=== PATIENT | male | born 2000 | race Caucasian/White ===

== ENCOUNTER 2024-10-08 09:40 | Outpatient (REF) | payer SELFPAY ==
--- OUTSIDE RECORDS SUMMARY | 2024-10-08 10:19 | XMS_ITS | Encounter Summary ---
Author Organization [employer] Address [address] [facility] 7t [place] [address] Care Team Providers Care Neurosurgical Physician Assistant Name Role Phone Unavailable Primary Care Provider Unavailabl e Reason for Visit * Reason Onset Date Comments chart prep 10/07/2024 Encounter Details Date Type Department Care Team (Late st Contact Info) Description 10/07/2024 Telephone [facility] MED[facility]INE [address] [place], [place] [phone] Reta Daly MD [address] [place], [place] [phone] chart prep Social History Tobacco Use Types Packs/Day Years Used Date Smoking Tobacco: Never Assessed Depression Answer Date Recorded Patient Health Questionnaire-9 Score 3 10/08/2024 Patient Health Questionnaire-9 Score 3 10/08/2024 Last PHQ-9: Questionnaire Data Not on file 0 10/08/2024 Housing Stability Answer Date Recorded What is your housing situation today? I have maxwell hunter 09/28/[address] you li ve. Do you have problems with any of the following? None of the above 09/28/2024 Food Insecurity Answer Date Recorded Within the past 12 months, y ou worried that your food would run out before you got money to buy more: Never True 09/28/2024 Within the past 12 months,th e food you bought just didn't last and you didn't have enough money to get more: Never True Transportation Answer Date Recorded In the past 12 months, has l ack of transportation kept you from medical appts, meetings, work or from getting things needed for daily living? No 09/28/2024 Utilities Answer Date Recorded In the past 12 months, has t he electric, gas, oil or water company threatened to shut off services in your home? No 09/28/2024 Depression Answer Date Recorded Patient Health Questionnaire-2 Score 0 10/08/2024 Internet Access Answer Date Recorded Internet Access Q1 Yes 09/28/2024 Internet Access Q2 Not on file 09/28/2024 Sex and Gender Information Value Date Recorded Sex Assigned at Male 07/08/2022 10:26 AM EDT Legal Sex Male 10:26 AM EDT Gender Identity Male 10/05/2024 11:43 AM EST Sexual Orientation Don't know 10/05/2024 12 :16 PM EST documented as of this encounter Miscellaneous Notes * Telephone Encounter - Narcisa Brooks MA - 10/07/2024 9:22 AM EST Chart Prep Labs: not applicable Images: not applicable Vaccines due: yes Referrals: NA Overdue care gaps: Sbirt, SDOH, PHQ-9, Oral Health documented in this encounter Plan of Treatment Not on file documented as of this encounter Visit Diagnoses Not on filedocumented in this encounter
--- OUTSIDE RECORDS SUMMARY | 2024-10-08 10:19 | XMS_ITS | Clinical Summary ---
Author Organization [employer] Address [address] [facility] [address] 7t [place] [address] Care Team Providers Care Foundry Hand Name Role Phone Reta Daly MD Primary Care Provider [phone] Allergies No known active allergies Medications Blood Pressure Monitoring (Blood Pressure Cuff) [facility] 1 each Once per day. 1 each 10/08/2024 Active Encounters Date Type Department Care Team Description 10/08/2024 9:00 AM EST Office Visit [address] [phone] Reta Daly MD Screening examination for STI (Primary Dx); Elevated blood pressure reading in office without diagnosis of hypertension 10/08/2024 Travel 10/07/[address] [address] Reta Daly MD chart prep 09/28/2024 Patient Outreach [address] [address] Reta Daly MD Pre-visit Planning (SDOH screening negative and tobacco screening positive) 09/06/[address] [address] Brendon Morris MD New patient from Last 3 Months Social History Tobacco Use Types Packs/Day Years Used Date Smoking Tobacco: Some Days Cigarettes Smokeless Tobacco: Current Tobacco Cessation:Ready to Q uit: Not Asked; Counseling Given: Not Answered Alcohol Use Standard Drinks/Week Comments Not Currently 0 (1 standard drink = 0.6 oz pur e alcohol) Depression Answer Date Recorded Patient Health Questionnaire-9 [...] Don't know 10/05/2024 12 :16 PM EST Last Filed Vital Signs Vital Sign Reading Time Taken Comments Blood Pressure 138/86 10/08/2024 9:04 AM EST Pulse 84 10/08/2024 9:04 AM EST Temperature 36.4 ??C (97.6 ??F) 10/08/2024 9:04 AM ES T Respiratory Rate 17 10/08/2024 9:04 AM EST Oxygen Saturation - - Inhaled Oxygen Concentration - - Weight 93.5 kg (206 lb 3.2 oz) 10/08/2024 9:04 A M EST Height 182.9 cm (6') 10/08/2024 9:04 AM EST Body Mass Index 27.97 10/08/2024 9:04 AM EST Plan of Treatment Health Maintenance Due Date Last Done Comments HIV Screening 2000 Lipid Panel 2000 Alcohol/Substance Use Screening 2012 Family Planning (PISQ) 2015 HPV Vaccines (1 - Male 3-dos e series) 2015 Hepatitis C Screening 2018 Hepatitis B Vaccines (1 of 3 - 19+ 3-dose series) 2019 Pneumococcal Vaccine: Pediatrics (0 to 5 Years) and At-Risk Patients (6 to 49) Years) (1 of 2 - PCV) 2019 SDOH Screening 09/28/2025 09/28/2024 Depression Screening 10/08/2025 10/08/2024, 10/08/2024 Tobacco Screening 10/08/2025 10/08/2024 DTaP/Tdap/Td Vaccines (2 - T d or Tdap) 07/21/2034 07/21/2024 Zoster Vaccines (1 of 2) 2050 RSV Patients and Patients Aged 60 years or older (1 - 1-dose 75+ series) 2075 COVID-19 Vaccine Completed 07/16/2024 Influenza Vaccine Completed 07/16/2024 HIB Vaccines Aged Out No longer eligi ble based on patient's age to complete this topic Hepatitis A Vaccines Aged Out No long er eligible based on patient's age to complete this topic IPV Vaccines Aged Out No longer eligi ble based on patient's age to complete this topic Meningococcal Vaccine Aged Out No sonia adi eligible based on patient's age to complete this topic RSV under 20 months Aged Out No longe r eligible based on patient's age to complete this topic Rotavirus Vaccines Aged Out No longer eligible based on patient's age to complete this topic Insurance Care Teams Foundry Hand Relationship Specialty Start Date End Date Reta Daly MD [address] [place] [id number] PCP - General Family Medicine 10/08/24
--- OUTSIDE RECORDS SUMMARY | 2024-10-08 10:19 | XMS_ITS | Encounter Summary ---
Author Organization [employer] Address [address] [facility] 7[address] [place] [address] Care Team Providers Care Lawyers Name Role Phone Reta Daly MD Primary Care Provider [phone] Reason for Visit * Reason Comments Transfer patient Encounter Details Date Type Department Care Team ([facility] st Contact Info) Description 10/08/2024 9:00 AM EST Office Visit [facility] MEDICINE [address] [place], [place] [phone] Reta Daly MD [address] [place], [place] [phone] Screening examination for STI (Primary Dx); Elevated blood pressure reading in office without diagnosis of hypertension Social History Tobacco Use Types Packs/Day Years [...] PM EST documented as of this encounter Last Filed Vital Signs Vital Sign Reading [...] Mass Index 27.97 10/08/2024 9:04 AM EST documented in this encounter Plan of Treatment Scheduled Orders Name Type Priority Associated Diagnoses Orde r Schedule Lipid Panel, Standard Lab Routine Elevated blood pressure reading in office without diagnosis of hypertension Expected: 10/08/2024 (Approximate), Expires: 10/08/2025 Comprehensive Metabolic Panel Lab Routine Elevated blood pressure reading in office without diagnosis of hypertension Expected: 10/08/2024 (Approximate), Expires: 10/08/2025 HIV-1/2 Antigen and Antibodies, Fourth Generation, with Reflexes Lab Routine Screening Examination For Sti Expected: 10/08/2024 (Approximate), Expires: 10/08/2025 Hepatitis C Antibody with Reflex to HCV, RNA, Quantitative, Real-Time PCR Lab Routine Screening Examination For Sti Expected: 10/08/2024, Expires: 10/08/2025 RPR (Monitor) with Reflex to??Titer Lab Routine Screening Examination For Sti Expected: 10/08/2024, Expires: 10/08/2025 Chlamydia/N. Gonorrhoeae RNA, TMA, Urogenitial Microbiology Routine Screening Examination For Sti Expected: 10/08/2024 (Approximate), Expires: 10/08/2025 documented as of this encounter Visit Diagnoses Diagnosis Screening examination for STI- Primary Elevated blood pressure reading in office without diagnosis of hypertension documented in this encounter Additional Health Concerns Assessment Noted Time PHQ-9 Depression Total Score: 3 10/08/19 25 9:05 AM EST documented as of this encounter Care Teams Lawyers Relationship Specialty Start Date End Date Reta Daly MD [address] [place] [id number] PCP - General Family Medicine 10/08/24 documented as of this encounter
--- OUTSIDE RECORDS SUMMARY | 2024-10-08 10:19 | XMS_ITS | Encounter Summary ---
Author Organization [employer] Address [address] [facility] [address] [place] [address] Care Team Providers Care Pre Algebra Teacher Name Role Phone Reta Daly MD Primary Care Provider [phone] Encounter Details Date Type Department Care Team (Latest Contact Info) Description 10/08/2024 Travel Social History Tobacco Use Types Packs/Day Years Used Date Smoking Tobacco: Some Days Cigarettes Smokeless Tobacco: Current Alcohol Use Standard Drinks/Week Comments Not Currently 0 (1 standard drink = 0.6 oz pur e alcohol) Depression Answer Date Recorded Patient Health Questionnaire-9 Score 3 10/08/2024 Patient Health Questionnaire-9 Score 3 10/08/2024 Last PHQ-9: Questionnaire Data Not on file 0 10/08/2024 Housing Stability Answer Date Recorded What is your housing situation today? I have maxwell dale 09/28/[address] you li [...] PM EST documented as of this encounter Plan of Treatment Not on file documented as of this encounter Visit Diagnoses Not on filedocumented in this encounter Additional Health Concerns Assessment Noted Time PHQ-9 Depression Total Score: 3 10/08/19 9:05 AM EST documented as of this encounter Care Teams Pre Algebra Teacher Relationship Specialty Start Date End Date Reta Daly MD [address] [place] [address] PCP - General Family Medicine 10/08/24 documented as of this encounter
--- OUTSIDE RECORDS SUMMARY | 2024-10-08 10:19 | XMS_ITS | Encounter Summary ---
Author Organization [employer] Address [address] [facility] [address] [place] [address] Care Team Providers Care Referral Management Liaison Name Role Phone Unavailable Primary Care Provider Unavailabl e Reason for Visit * Reason Comments Pre-visit Planning SDOH screening negat mal[place] and tobacco screening positive Encounter Details Date Type Department Care Team ([facility] st Contact Info) Description 09/28/2024 Patient Outreach [facility] MEDICINE [address] [place], [place] [phone] Reta Daly MD [address] [place], [place] [phone] Pre-visit Planning (SDOH screening negative and tobacco screening positive) Social History Tobacco Use Types Packs/Day Years Used Date Smoking Tobacco: Never Assessed Housing Stability Answer Date Recorded What is your housing situation today? I have maxwell sing 09/28/[address] you li [...] off services in your home? No 09/28/2024 Internet Access Answer Date Recorded Internet Access Q1 Yes 09/28/2024 Internet Access Q2 Not on file 09/28/2024 Sex and Gender Information Value Date Recorded Sex Assigned at Male 07/08/2022 10:26 AM EDT Legal Sex Male 10:26 AM EDT Gender Identity Male 10/05/2024 11:43 AM EST Sexual Orientation Don't know 10/05/2024 12 :16 PM EST documented as of this encounter Progress Notes * Sharonda Gore - 09/28/2024 11:44 AM EST CC Sharonda placed successful outbound call to patient for pre-visit planning. Patient name and confirmed. Patient confirms appt date and time, and has transportation. Biggest concern for appointment at this time is HTN Patient advised to bring to appointment a photo id and insurance card. Appropriate screenings completed in anticipation of appointment. documented in this encounter Plan of Treatment Not on file documented as of this encounter Visit Diagnoses Not on filedocumented in this encounter
[2024-10-08 12:46] LABS: Alanine Aminotransferase 12 U/L (0-40); Albumin Level 4.7 g/dL (3.5-5.0); Alkaline Phosphatase 55 U/L (39-117); Anion Gap 10 (12-20); Aspartate Amino Transferase 21 U/L (5-37); Bilirubin Total 0.5 mg/dL (0.0-1.0); Blood Urea Nitrogen 9 mg/dL (9-16); Calcium 9.9 mg/dL (8.4-10.2); Carbon Dioxide 28 mmol/L (22-29); Chloride 108 mmol/L (96-108); Cholesterol 83 mg/dL (<200); Estimated Glomerular Filt Rate > 60; Glucose Random 95 mg/dL (60-115); HDL Cholesterol 32 mg/dL (>40); LDL Cholesterol Calculated 45 mg/dL (<100); Potassium 4.2 mmol/L (3.3-5.1); Sodium 142 mmol/L (135-145); Triglycerides 33 mg/dL (<150)
[2024-10-08 13:09] LABS: HIV AB/AG Nonreactive (Nonreactive); HIV Num 1 0.06 S/CO (0.00-0.99); ~HepC Num1 0.08 S/CO (0.00-0.79); ~Hepatitis C Antibody Nonreactive (Nonreactive)
[2024-10-08 14:35] LABS: CT PCR NOT DETECTED (Not Detect.); NG PCR NOT DETECTED (Not Detect.)
[2024-10-10 18:18] LABS: RPR Rapid Plasma Reagin NON-REACTIVE (NON-REACTIVE)
== END 2024-10-08 09:41 | disposition home or self-care (01) ==
LOC: HO.HHCL 09:40
PROVIDERS: Visit Provider General Practice
DX: Z11.4 Encounter for screening for human immunodeficiency virus [HIV] (principal); Z13.6 Encounter for screening for cardiovascular disorders; R03.0 Elevated blood-pressure reading, without diagnosis of hypertension; Z20.2 Contact with and (suspected) exposure to infections with a predominantly sexual mode of transmission
CPT/HCPCS: 80053; 80061; 86592; 86803; 87389; 87491; 87591

== ENCOUNTER → 2025-06-15 08:03 | Outpatient (REF) | payer OTHER, SELFPAY ==
--- NOTE | 2025-06-15 08:09 | CA_ITS ---
Transthoracic Echocardiogram Patient (Last, First, Middle): Jae Swenson J Gender: M Date of : 2000 Age: 24 Procedure Date: 06/15/2025 Procedure Type: Transthoracic Echocardiogram Location: OP Height: 182.88 cm Weight: 90.72 kg BSA: 2.13 m2 Heart Rate: bpm BP: 124 / 86 mmHg Air Quality Chemist: DARSHANA Referring MD: Reta Daly MD Insole Buffer: Collins Delgadillo MD Symptoms: CHEST PAIN Study Quality: Fair ECG Rhythm: Sinus Conclusions: - Essentially normal study Findings Procedure Information Contrast agent, definity, is being given per protocol without apparent complications. Left Ventricle Normal left ventricular size, thickness, and systolic function. The visually estimated ejection fraction is between 55-60%. Diastolic function is normal for age. Right Ventricle Normal right ventricular cavity size and systolic function. Atria Both atria are normal in size. Interatrial shunt cannot be excluded. Aortic Valve The aortic valve structure and function is likely normal. There is no aortic valve stenosis. There is no aortic valve regurgitation. Mitral Valve Normal mitral valve structure and function. There is trace mitral valve regurgitation. There is no mitral valve stenosis. Pulmonic Valve The pulmonic valve is likely normal. There is trace pulmonic valve regurgitation. Tricuspid Valve Normal tricuspid valve structure. There is trace tricuspid valve regurgitation. The right ventricular systolic pressure is normal. The right ventricular systolic pressure is 19 mmHg. Normal right atrial pressure. There is no evidence of pulmonary hypertension. Great Vessels All visible segments of the aorta are normal in size. The pulmonary artery was not well visualized. Venous The inferior vena cava is normal in size and collapses greater than 50% with inspiration. Pericardium/Pleural There is no evidence of pericardial effusion. Prior Study Comparison No prior study available for comparison. Measurements 2D Linear Measurements IVSd: 0.82 0.6-0.9/0.6-1.0 cm LVIDd: 4.71 3.9-5.3/4.2-5.9 cm LVIDd Index: 2.21 2.4-3.2/2.2-3.1 cm/m2 LVIDs: 3.34 2.0-3.6 cm LVPWd: 0.84 0.7-1.1 cm LA Diam: 2.30 2.7-3.8/3.0-4.0 cm LAIDs Index: 1.08 1.5-2.3 cm/m2 LV Mass: 159.26 67-162/88-224 g LV Mass Index: 74.77 43-95/49-115 g/m2 LVOT Diam: 2.20 3.0+(-)1.3 cm 2D Systolic Function EF 4C: 52.50 >55% EF 2C: 57.40 >55% EF BiP: 54.50 >55% Mitral Valve MV Pk E: 0.68 MV PK A: 0.45 MV Decel Time: 260.00 E/A: 1.50 E'Lateral: 12.70 E'Medial: 11.10 E/E' Med: 6.20 E/E' Lat: 5.40 PHT: 76.00 MVA PHT: 2.89 Decel [place]: 2.63 Aortic Valve AoV Pk Denilson: 1.17 AoV Mn Denilson: 0.84 AoV VTI: 0.21 AoV Pk Grad: 5.00 Aov Mn Grad: 3.00 RIRI Cont.VTI: 3.25 LVOT LVOT Pk Denilson: 0.95 LVOT Mn [place]: 0.67 LVOT VTI: 0.18 LVOT Pk Grad: 4.00 LVOT Mn Grad: 2.00 LVOT Diam: 2.20 LVOT Area: 3.80 Diastolic Function MV Pk E: 0.68 MV Pk A: 0.45 E/A: 1.50 E'Medial: 11.10 E/E' Med: 6.20 E' Laterial: 12.70 E/E' Lat: 5.40 Right Ventricle TAPSE (mm): 17.80 TVS' Denilson: 9.25 Tricuspid Valve TR Pk Denilson: 1.97 TR Pk Grad: 16.00 RA Press: 3.00 RVSP: 19.00 Great Vessels Aorta Sinus of Valsalva: 3.04 2.0-3.[address] [place]: 2.39 1.7-3.4 cm Ao Asc: 2.80 2.1-3.4 cm Ao Arch: 2.40 Pulmonary Veins Pulm Vein S/D 0.60 Updated in Other Vendor System with Status of Final Collins Delgadillo MD electronically signed on 06/15/2025 4:26:51 PM with status of Final
== END ==
LOC: HO.CARD 08:03
PROVIDERS: PCP General Practice; Visit Provider General Practice
DX: R07.89 Other chest pain (principal)
CPT/HCPCS: 93306; Q9957

== ENCOUNTER → 2025-06-15 08:09 | Outpatient (BNV) | payer OTHER, SELFPAY | PROVIDERS: PCP General Practice; Visit Provider Internal Medicine Cardiovascular Disease | DX: R07.9 Chest pain, unspecified (principal) | CPT/HCPCS: 93306 ==